=== PATIENT | female | born 1970 | race African-American/Black ===

== ENCOUNTER 2020-12-08 15:41 | Emergency (ER) | payer OTHER ==
[~2020-12-08] VITALS: Ht 157.5 cm; Wt 63.5 kg
[2020-12-08] MEDS ORDERED: SYNTHROID88 MCG PO (15:59)
[2020-12-08] MEDS ORDERED: VASOTEC5 MG PO (15:59)
[2020-12-08] MEDS ORDERED: DERMACINRX5000 UNIT PO (15:59)
[2020-12-08] MEDS ORDERED: KETO10TA2 PO (20:03)
== END 2020-12-08 21:17 | disposition home or self-care (01) ==
LOC: ER 15:41
DX: R10.11 Right upper quadrant pain (principal)